=== PATIENT | male | born 1940 | race Caucasian/White ===

== ENCOUNTER 2016-12-01 20:19 | Emergency (ER) | payer OTHER ==
[~2016-12-01] VITALS: Ht 172.7 cm; Wt 97.0 kg
[2016-12-01 20:22] VITALS: TEMP 36.4; Ht 172.7 cm; Wt 97.0 kg
[2016-12-01] MEDS ORDERED: ACETAMINOPHEN 500 MG TAB PO STA (20:39)
[2016-12-01] MEDS ORDERED: FINA5TAB PO (20:58)
[2016-12-01] MEDS ORDERED: MULT-506 PO (20:58)
[2016-12-01] MEDS ORDERED: ASPI325T39 PO (20:58)
[2016-12-01] MEDS ORDERED: AMLO-114 PO (20:58)
[2016-12-01] MEDS ORDERED: LISI-725 PO (20:58)
[2016-12-01] MEDS ORDERED: SIMV40TA2 PO (20:58)
[2016-12-01] MEDS ORDERED: CHOL2000 PO (20:58)
--- NOTE | 2016-12-01 21:13 | DIAGNOSTIC IMAGING REPORT ---
RIGHT SHOULDER 3 VIEWS HISTORY: fall hit right shoulder Right COMPARISON: None. FINDINGS: There is no fracture or dislocation. Soft tissues are unremarkable. No radiopaque foreign bodies. The right clavicle appears intact. Mild degenerative changes at the a.c. and glenohumeral joints. IMPRESSION: No fractures. Electronically signed by: Jonny Chase M.D. 12/01/2016 9:11 PM Dictated Date/Time: 12/01/2016 9:07 PM
--- NOTE | 2016-12-01 22:06 | DIAGNOSTIC IMAGING REPORT ---
HEAD CT NONCONTRAST CT DOSE: 638.56 mGycm HISTORY: fall hit head TECHNIQUE: Multiaxial CT images of the head were performed without the use of intravenous contrast. Automated exposure control was utilized for this study. A dose lowering technique was utilized adhering to the principles of ALARA. Comparison: None. Findings: The paranasal sinuses and mastoid air cells are clear. The calvarium and skull base are intact. There is no mass, hematoma, midline shift, acute infarct. White matter hypodensity is nonspecific but suggestive of microvascular ischemic change. The ventricles and sulci demonstrate mild age-related involutional changes. 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 Left posterior scalp hematoma. Impression: No acute intracranial abnormality. Left posterior scalp hematoma. Electronically signed by: Jonny Chase M.D. 12/01/2016 10:04 PM Dictated Date/Time: 12/01/2016 9:57 PM
--- NOTE | 2016-12-01 22:09 | DIAGNOSTIC IMAGING REPORT ---
CERVICAL SPINE CT CT DOSE: 452.98 mGycm HISTORY: Neck pain. fall hit head TECHNIQUE: Multiaxial CT images of the cervical spine were performed and reformatted in the sagittal and coronal plane without the use of contrast. A dose lowering technique was utilized adhering to the principles of ALARA. COMPARISON: None. FINDINGS: No fractures. No subluxation. Prevertebral soft tissues and the C1-C2 interval are intact. No pneumothorax. Severe degenerative disc disease from C3 through C7 with endplate osteophytes. Posterior fusion defect at C1. IMPRESSION: No fractures within the cervical spine. Multilevel severe degenerative disc disease. Electronically signed by: Jonny Chase M.D. 12/01/2016 10:08 PM Dictated Date/Time: 12/01/2016 10:04 PM
[2016-12-01 22:23] VITALS: BP 165/76; PULSE 66; O2SAT 93
--- NOTE | 2016-12-01 22:50 | EMERGENCY ROOM VISIT NOTE ---
History Report prepared by Blake: Camelia Pederson Under the Supervision of: Dr. Jose R Frank D.O. 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 The patient was adjusting a rubber mat in the garage when it slipped and he fell onto the concrete floor. He hit his head. He denies any LOC. He reports headache and right shoulder pain. The shoulder pain is achy and started 25 minutes after the fall. He denies any change in vision, neck pain , back pain, abdominal pain, or leg pain. He is on aspirin. Patient has not gonzalo this time. 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 Pt denies change in vision, leg pain. Review of Systems See HPI for pertinent positives & negatives. A total of 10 systems reviewed and were otherwise negative. Past Medical & Surgical Medical Problems: (1) Hypertension Family History No pertinent family history stated. Social History Smoking Status: Never Smoker Marital Status: Occupation Status: retired Current/Historical Medications Scheduled Amlodipine (Norvasc), 10 MG PO DAILY Aspirin (Aspirin Ec), 162.5 MG PO DAILY Cholecalciferol (Vitamin D3), 2,000 INTER.UNIT PO DAILY Finasteride (Proscar), 5 MG PO DAILY Lisinopril (Zestril), 20 MG PO BID Multivitamin (Multivitamin), 1 TAB PO DAILY Simvastatin (Zocor), 20 MG PO QPM Allergies Coded Allergies: No Known Allergies (Unverified , 12/01/16) Physical Exam Vital Signs Date Time Temp Pulse Resp B/P (MAP) Pulse Ox O2 Delivery O2 Flow Rate FiO2 12/01/16 22:23 66 20 165/76 93 12/01/16 21:30 60 20 151/86 94 Room Air 12/01/16 20:22 36.4 59 18 145/84 95 Room Air Physical Exam GENERAL: alert, well appearing, well nourished, no distress, non-toxic HEAD: large left occipital contusion EYE EXAM: normal conjunctiva, PERRL and EOM's grossly intact OROPHARYNX: no exudate, no erythema, lips, buccal mucosa, and tongue normal and mucous membranes are moist EARS: TMs clear b/l NECK: supple, no nuchal rigidity, no adenopathy, non-tender CHEST: stable to compression anteriorly and posteriorly LUNGS: clear to auscultation. Normal chest wall mechanics HEART: no murmurs, S1 normal and S2 normal ABDOMEN: abdomen soft, non-tender, normo-active bowel sounds, no masses, no rebound or guarding. PELVIS: stable to compression anteriorly and posteriorly BACK: Back is symmetrical on inspection and there is no deformity, no midline tenderness, no CVA tenderness. UPPER EXTREMITIES: tender to the proximal right humerus, full active and passive range of motion of all other joints without tenderness to palpation LOWER EXTREMITIES: full active and passive range of motion of all joints without tenderness to palpation NEURO EXAM: Normal sensorium, cranial nerves II-XII grossly intact, normal speech, no gross weakness of arms, no gross weakness of legs. GCS: 15. Medical Decision & Procedures ER Provider Diagnostic Interpretation: Radiology results as stated below per my review and the radiologist's interpretation: RIGHT SHOULDER 3 VIEWS HISTORY: fall hit right shoulder Right COMPARISON: None. FINDINGS: There is no fracture or dislocation. Soft tissues are unremarkable. No radiopaque foreign bodies. The right clavicle appears intact. Mild degenerative changes at the a.c. and glenohumeral joints. IMPRESSION: No fractures. Electronically signed by: Jonny Chase M.D. 12/01/2016 9:11 PM Dictated Date/Time: 12/01/2016 9:[address] CT DOSE: 638.56 mGycm HISTORY: fall hit head TECHNIQUE: Multiaxial CT images of the head were performed without the use of intravenous contrast. Automated exposure control was utilized for this study. A dose lowering technique was utilized adhering to the principles of ALARA. Comparison: None. Findings: The paranasal sinuses and mastoid air cells are clear. The calvarium and skull base are intact. There is no mass, hematoma, midline shift, acute infarct. White matter hypodensity is nonspecific but suggestive of microvascular ischemic change. The ventricles and sulci demonstrate mild age-related involutional changes. 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 Left posterior scalp hematoma. Impression: No acute intracranial abnormality. Left posterior scalp hematoma. Electronically signed by: Jonny Chase M.D. 12/01/2016 10:04 PM Dictated Date/Time: 12/01/2016 9:[address] DOSE: 452.98 mGycm HISTORY: Neck pain. fall hit head TECHNIQUE: Multiaxial CT images of the cervical spine were performed and reformatted in the sagittal and coronal plane without the use of contrast. A dose lowering technique was utilized adhering to the principles of ALARA. COMPARISON: None. FINDINGS: No fractures. No subluxation. Prevertebral soft tissues and the C1-C2 interval are intact. No pneumothorax. Severe degenerative disc disease from C3 through C7 with endplate osteophytes. Posterior fusion defect at C1. IMPRESSION: No fractures within the cervical spine. Multilevel severe degenerative disc disease. Electronically signed by: Jonny Chase M.D. 12/01/2016 10:08 PM Dictated Date/Time: 12/01/2016 10:04 PM Medications Administered Medications (Trade) Dose Ordered Sig/Flash Route Start Time Stop Time Status Last Admin Dose Admin Acetaminophen (Tylenol Tab) 1,000 mg NOW STAT PO 12/01/16 20:39 12/01/16 20:40 DC 12/01/16 20:45 1,000 MG ED Course ED COURSE: Vital signs were reviewed and showed hypertension. The patients medical record was reviewed The above diagnostic studies were performed and reviewed. ED treatments and interventions as stated above. 2030: The patient was evaluated in room B5. A complete history and physical examination was performed. 2038: Acetaminophen 1000 mg PO. 2211: Upon reevaluation, the patient is resting comfortably. I discussed my findings with the patient and he understands and agrees with the treatment plan. Based on the patients age, coexisting illnesses, exam and lab findings the decision to treat as an outpatient was made. The patient remained stable while under my care. The patient appeared well at the time of discharge. Medical Decision Differential diagnoses include major intracranial, cervical, spinal, thoracic, abdominal, pelvic and neurologic injury. Fracture, contusion, sprain, strain, laceration, abrasions included as well. Patient is a 76-year-old male that presents to ER following a mechanical fall onto his occiput. He has a large occipital contusion. No hemorrhage or bleeding. CT head and cervical spine was negative. X-ray of the right shoulder was unremarkable. Patient has no other complaints. He was given a dose of Tylenol. Patient was discharged to follow-up with PCP. Discussed with Pt concerning signs and symptoms to watch out for. Pt was instructed to follow up with their PCP and discussed with the patient their option to return to the ED at anytime for persistent or worsening symptoms. The appropriate anticipatory guidance and out-patient management, including indications for return to the emergency department, were explained at length to the patient and understood. Head Trauma GCS Score: 15 Medication Reconcilliation Current Medication List: was personally reviewed by me Blood Pressure Screening Patient's blood pressure: Elevated blood pressure Blood pressure disposition: Elevated BP felt to be situational Impression Primary Impression: Contusion of head Additional Impression: Fall Scribe Attestation The scribe's documentation has been prepared under my direction and personally reviewed by me in its entirety. I confirm that the note above accurately reflects all work, treatment, procedures, and medical decision making performed by me. Departure Information Dispostion Home / Self-Care Referrals No Doctor, Assigned (PCP) Forms HOME CARE DOCUMENTATION FORM, IMPORTANT VISIT INFORMATION Patient Instructions ED Contusion Scalp, My [facility] Additional Instructions Please follow up with your primary care doctor with in the next 24 hours. Any worsening of your symptoms, please return to the ED immediately. This includes any fevers greater than 100.4, worsening pain, confusion, weakness in your arms or legs, persistent nausea, vomiting, unable to eat or drink, or any other concerning signs or symptoms from your standpoint. Problem Qualifiers Primary Impression: Contusion of head Encounter type: initial encounter Contusion of head detail: scalp Qualified Codes: S00.03XA - Contusion of scalp, initial encounter Additional Impression: Fall Encounter type: initial encounter Qualified Codes: W19.XXXA - Unspecified fall, initial encounter
== END 2016-12-01 22:24 | disposition home or self-care (01) ==
LOC: C.EDB 20:22
DX: S00.03XA Contusion of scalp, initial encounter (principal); W19.XXXA Unspecified fall, initial encounter; I10 Essential (primary) hypertension; Z79.82 Long term (current) use of aspirin